=== PATIENT | female | born 1970 | race Hispanic/Latino ===

== ENCOUNTER 2025-07-04 11:01 | Inpatient (IN) | payer OTHER ==
[~2025-07-04] VITALS: Ht 170.2 cm; Wt 86.2 kg
[2025-07-04] MEDS ORDERED: BELLADONNA ALK/PHENOBARBITAL 5 ML UDC PO STA (11:04)
[2025-07-04] MEDS ORDERED: LIDOCAINE VISC 2% SOLN 15 ML UDC PO ONE (11:15)
[2025-07-04] MEDS ORDERED: MAGNESIUM/ALUMINUM/SIMETHICONE 30 ML UDC PO ONE (11:15)
[2025-07-04] MEDS ORDERED: LIDOCAINE HCL 2% LOCAL 20 ML VIAL ONE (11:24)
[2025-07-04] MEDS ORDERED: MIDAZOLAM HCL 2 MG/2 ML VIAL ONE (11:25)
[2025-07-04] MEDS ORDERED: HEPARIN SOD/SOD CHLORIDE 2,000 ML ONE (11:25)
[2025-07-04] MEDS ORDERED: IOPAMIDOL 370 MG/ML 100 ML INFUS..BTL INJ ONE (11:25)
[2025-07-04 11:26] LABS: BASOPHILS % 0.2 % (0.0-1.0); EOSINOPHILS % 0.1 % (0.0-6.0); LYMPHOCYTES % 17.3 % (18.0-39.1); MONOCYTES % 6.3 % (4.4-11.3); NEUTROPHILS % 75.9 % (38.7-80.0); RED CELL DISTRIBUTION WIDTH 13.5 % (11.7-14.4)
[2025-07-04] MEDS ORDERED: FENTANYL CITRATE/PF 100MCG/2 ML INJ IV PRN (11:30)
[2025-07-04] MEDS: SODIUM CHLORIDE 0.9% 1000ML 1,000 ML IV SCH (11:35)
[2025-07-04] MEDS: NITROGLYCERIN 0.4 MG SUBL SL ONE (11:35)
[2025-07-04] MEDS: ASPIRIN 81 MG CHEW TAB PO ONE (11:36)
[2025-07-04 11:46] VITALS: PULSE 76; RESP 15; TEMP 98.7
[2025-07-04] MEDS ORDERED: ONDANSETRON HCL INJ 2MG/ML 2ML 2 MG/ML VIAL ONE (11:53)
[2025-07-04 12:03] LABS: EST GLOMERULAR FILTRATION RATE 73.0 ML/MIN (>=60)
[2025-07-04] MEDS ORDERED: BIVALRIUDIN 250 MG/VIAL VIAL IV ONE (12:03)
[2025-07-04] MEDS ORDERED: SODIUM CHLORIDE 0.9% 1000ML 1,000 ML ONE (12:15)
[2025-07-04 13:00] VITALS: BP 110/62; PULSE 78; O2SAT 100
[2025-07-04 13:15] VITALS: BP 130/77; PULSE 92; O2SAT 100
[2025-07-04 13:30] VITALS: BP 126/82; PULSE 94; O2SAT 99
[2025-07-04 14:00] VITALS: BP 131/77; PULSE 92; O2SAT 100
[2025-07-04 14:30] VITALS: BP 131/77; PULSE 92; RESP 18; O2SAT 100
== END 2025-07-04 17:50 | disposition short-term general hospital (02) | DRG 270 ==
LOC: ER 11:04 → CATH LAB V 12:19
PROVIDERS: ADMIT Emergency Medicine; ATTEND Emergency Medicine
PROC: 4A023N7 Measurement of Cardiac Sampling and Pressure, Left Heart, Percutaneous Approach (ICD-10-PCS; principal; 2025-07-04)
PROC: 5A02210 Assistance with Cardiac Output using Balloon Pump, Continuous (ICD-10-PCS; 2025-07-04)
PROC: B2151ZZ Fluoroscopy of Left Heart using Low Osmolar Contrast (ICD-10-PCS; 2025-07-04)
PROC: B2111ZZ Fluoroscopy of Multiple Coronary Arteries using Low Osmolar Contrast (ICD-10-PCS; 2025-07-04)
DX: I21.4 Non-ST elevation (NSTEMI) myocardial infarction (principal); I50.21 Acute systolic (congestive) heart failure; R57.0 Cardiogenic shock; I11.0 Hypertensive heart disease with heart failure; I25.10 Atherosclerotic heart disease of native coronary artery without angina pectoris; I25.82 Chronic total occlusion of coronary artery; E78.00 Pure hypercholesterolemia, unspecified; K21.9 Gastro-esophageal reflux disease without esophagitis; G51.0 Bell's palsy; E11.8 Type 2 diabetes mellitus with unspecified complications; E66.9 Obesity, unspecified; Z68.29 Body mass index [BMI] 29.0-29.9, adult; M17.11 Unilateral primary osteoarthritis, right knee
CPT/HCPCS: 33970; 36415; 71045; 76937; 80053; 82948; 83690; 84484; 85025; 93005; 93306; 93458; 93880; 99283; C1766; C1769; C1887; J0583; J2003; J2250; J2405; J7030; Q9967